=== PATIENT | male | born 1985 | race Caucasian/White ===

== ENCOUNTER 2017-06-23 18:10 | Emergency (ER) | END 2017-06-23 19:42 | disposition left against medical advice (07) | LOC: UCCORT 18:10 | DX: S89.91XA Unspecified injury of right lower leg, initial encounter (principal); X58.XXXA Exposure to other specified factors, initial encounter; Y93.9 Activity, unspecified; Y92.9 Unspecified place or not applicable; Y99.9 Unspecified external cause status; Z53.21 Procedure and treatment not carried out due to patient leaving prior to being seen by health care provider ==

== ENCOUNTER 2017-06-24 07:17 | Emergency (ER) | payer OTHER ==
[2017-06-24 07:28] VITALS: BP 137/85
--- NOTE | 2017-06-24 07:49 | UC ---
Knee Pain HPI - HPI Summary HPI Summary: 32 year old male with knee pain. c/o hearing a "pop" in R knee Wednesday while going down stairs. States body turned, but leg was left behind. Has had previous dislocaion of the left knee with avulsion fractures and knee surgery. Has not seen ortho since age 18. PCP Hugo. [ End ] - History of Current Complaint Chief Complaint: UCLowerExtremity Stated Complaint: RIGHT KNEE INJURY Time Seen by Provider: 06/24/17 07:46 Hx Obtained From: Patient Onset/Duration: Sudden Onset Severity Initially: Moderate Severity Currently: Moderate Character: Dull, Throbbing, Stiffness Aggravating Factor(s): Weight Bearing Alleviating Factor(s): Rest Associated Signs And Symptoms: Positive: Swelling Able to Bear Weight: Yes - Allergies/Home Medications Allergies/Adverse Reactions: Allergies Allergy/AdvReac Type Severity Reaction Status Date / Time No Known Allergies Allergy Verified 06/24/17 07:23 Home Medications: Home Medications Ibuprofen [Advil] 600 mg PO Q6H PRN 06/24/17 [History Confirmed 06/24/17] PMH/Surg Hx/FS Hx/Imm Hx Previously Healthy: Yes - Surgical History Surgical History: Yes Surgery Procedure, Year, and Place: L knee - Social History Occupation: Employed Full-time Lives: With Family Alcohol Use: Daily Alcohol Amount: couple beers nightly Substance Use Type: None Smoking Status (MU): Never Smoked Tobacco Review of Systems Constitutional: Negative Skin: Negative Eyes: Negative ENT: Negative Respiratory: Negative Cardiovascular: Negative Gastrointestinal: Negative Genitourinary: Negative Motor: Negative Neurovascular: Negative Musculoskeletal: Arthralgia, Decreased ROM Neurological: Negative Psychological: Negative Is Patient Immunocompromised?: No All Other Systems Reviewed And Are Negative: Yes Physical Exam Triage Information Reviewed: Yes Appearance: Well-Appearing, No Pain Distress, Well-Nourished Vital Signs: Initial Vital Signs Temp 98.6 F 06/24/17 07:24 Pulse 75 06/24/17 07:24 Resp 16 06/24/17 07:24 BP 137/85 06/24/17 07:24 Vital Signs Reviewed: Yes Eye Exam: Normal Neck: Positive: 1 Respiratory Exam: Normal Cardiovascular Exam: Normal Musculoskeletal: Positive: Strength Intact, No Edema, ROM Limited @ - with flexion some reduction . neg homans. no ballotment but mild effusion anterior knee. medial joint line and anterior knee mild pain to palpation, Other: - neg lachmmans. no homans. no ecchymosis. no disclocation. on obvious instability. antalgic gait. strength 5/5 and sensation intact Neurological Exam: Normal Psychological Exam: Normal Skin Exam: Normal Diagnostics - Laboratory Diagnostic Studies Completed/Ordered: X-RAY RESULTS : IMPRESSION: WELL- CORTICATED BONE FRAGMENT SUGGESTIVE OF REMOTE AVULSION INJURY VERSUS UNUNITED OSSICLE. OF THE MEDIAL PATELLA. NO ACUTE OSSEOUS INJURY. IF SYMPTOMS PERSIST, RECOMMEND REPEAT. IMAGING Knee Pain Course/Dx - Course Course Of Treatment: Discussed results with patient and to go to Ortho for F/U. No acute concerns. No stabbing pain . Pain 4 or 5 out of 10. 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 will go to ortho no matter what due to his history . - Differential Dx/Diagnosis Differential Diagnosis/HQI/PQRI: Contusion, Dislocation, Fracture (Closed), Internal Derangement Of Knee, Fanny-Schlatter Disease, Patellofemoral Syndrome , Sprain, Strain Provider Diagnoses: Right knee pain. Discharge - Discharge Plan Condition: Good Disposition: HOME Patient Education Materials: Knee Pain (ED) Referrals: Luis Eastman MD [Medical Doctor] - 4 Days (Ortho referral ) Additional Instructions: X-RAY RESULTS : IMPRESSION: WELL-CORTICATED BONE FRAGMENT SUGGESTIVE OF REMOTE AVULSION INJURY VERSUS UNUNITED OSSICLE OF THE MEDIAL PATELLA. NO ACUTE OSSEOUS INJURY. IF SYMPTOMS PERSIST, RECOMMEND REPEAT IMAGING
--- NOTE | 2017-06-24 08:26 | RAD ---
HISTORY: Right knee pain COMPARISONS: None VIEWS: 4, Frontal, lateral, axial, and oblique views of the right knee FINDINGS: BONE DENSITY: Normal. BONES: There is no acute displaced fracture. There is a well-corticated bone fragment along the medial aspect of the patella best seen on the axial views. JOINTS: There is no arthropathy. ALIGNMENT: There is no dislocation. SOFT TISSUES: Unremarkable. OTHER FINDINGS: None. IMPRESSION: WELL-CORTICATED BONE FRAGMENT SUGGESTIVE OF REMOTE AVULSION INJURY VERSUS UNUNITED OSSICLE OF THE MEDIAL PATELLA. NO ACUTE OSSEOUS INJURY. IF SYMPTOMS PERSIST, RECOMMEND REPEAT IMAGING
== END 2017-06-24 08:35 | disposition home or self-care (01) ==
LOC: UCCORT 07:17
DX: M25.561 Pain in right knee (principal)
CPT/HCPCS: 99211; G0463

== ENCOUNTER 2018-10-22 08:20 | Emergency (ER) | payer BC, OTHER ==
--- OUTSIDE RECORDS SUMMARY | 2018-10-22 08:29 | XMS REPORT | Continuity of Care Document ---
:1985 External Reference #:[id number] Author Name Kathrin Ramirez Care Team Providers Name Role Phone Chandler Angel MD Care Team Information Sports Statistician Unavailable Payers Date Identification Numbers Payment Provider Subscriber Effective: 2017 Policy Number: [id number] [employer] Elysia Casillas PayID: [id number] [address] [address] [place] [address] Advance Directives Description No Information Available Problems Description No Information Family History Date Family Member(s) Observation Comments General Breast Cancer maternal grandmother General Hypertension General Alzheimer's Disease Father Hypertension Mother Alive And Well First Brother Asthma Social History Type Date Description Comments Sex Unknown Marital Status Lives With Pets 1 cat Pets 2 dogs Occupation Currently Working time study analyst Occupation Business Travel Consultant ETOH Use Occasionally consumes alcohol Tobacco Use Start: Unknown End: Patient is a former smoker end date 2009 Unknown Recreational Drug Use Formerly used Marijuana sporadically Smoking Status Reviewed: 10/14/18 Patient is a former smoker end date 2009 Allergies, Adverse Reactions, Alerts Date Description Reaction Status Severity Comments 08/12/2018 Environmental Active Mild Medications Medication Date Status Form Strength Qnty SIG Indications Ordering Provider One Daily For Active Tablets Men 50+ Chandler Men 50+ 019 Mariajose valladares MD Vitamin D3 Active Tablets [id number] 12tabs 1 weekly Chandler Ultra Potency 018 (please Billy d3) MD jacquelyn Citalopram Active Tablets 20mg 90tabs 1 by F33.1 Chandler Hydrobromide 018 mouth Billy every MD jacquelyn day Oxycodone-Aceta /0 Hx Tablets 5-325mg Unknown minophen 000 - 018 Aspir-Low [address] 81mg Unknown 000 - 018 Immunizations CPT Code Status Date Vaccine Lot # 05334 Given 11/16/2011 Human Papillomavirus Vaccine Types; Nonavalent 3 [place] [address] Given 05/29/2011 Tdap - Tetanus/Diptheria/Acellular Pertussis 27064 Given 06/02/2005 Meningitis MCV4 MenACWY Meningococcal Conjugate Vaccine 14642 Given 04/08/2001 Hep B Pediatric/Adolescent 36590 Given 03/11/2000 Hep B Pediatric/Adolescent 93079 Given 02/05/2000 Hep B Pediatric/Adolescent 48994 Given 03/12/1993 IPV/Poliomyelitis Immunization 83898 Given 03/12/1993 Measles Mumps And Rubella MMR 60653 Given 03/21/1992 DTP Vaccine 38993 Given 04/07/1991 IPV/Poliomyelitis Immunization 07097 Given 04/07/1991 DTP Vaccine 58052 Given 04/07/1991 Hib PRP-T Conjugate 4 Dose Schedule 35267 Given 06/08/1989 Measles Mumps And Rubella MMR 16789 Given 04/16/1988 IPV/Poliomyelitis Immunization 45367 Given 04/16/1988 DTP Vaccine 98433 Given 1987 IPV/Poliomyelitis Immunization 22569 Given 1987 DTP Vaccine Vital Signs Date Vital Result Comment 10/14/2018 9:19am Height 65.75 inches 5'5.75" Weight 154.00 lb Heart Rate 56 /min BP Systolic 126 mmHg BP Diastolic 76 mmHg O2 % BldC Oximetry 99 % BMI (Body Mass Index) 25.0 kg/m2 09/08/2018 8:04am Weight 152.00 lb BP Systolic 130 mmHg BP Diastolic 62 mmHg 05/30/2018 4:21pm Weight 150.00 lb BP Systolic 112 mmHg BP Diastolic 74 mmHg 02/16/2018 4:27pm Weight 150.00 lb BP Systolic 130 mmHg BP Diastolic 72 mmHg 11/10/2017 11:57am Weight 146.00 lb BP Systolic 116 mmHg BP Diastolic 70 mmHg 10/13/2017 1:38pm Height 65 inches Weight 147.00 lb Heart Rate 84 /min BP Systolic 112 mmHg BP Diastolic 76 mmHg Respiratory Rate 16 /min BMI (Body Mass Index) 24.5 kg/m2 11/27/2016 8:17am Height 65.75 inches Weight 149.00 lb Heart Rate 76 /min BP Systolic 122 mmHg BP Diastolic 70 mmHg Respiratory Rate 16 /min Body Temperature 98.2 F BMI (Body Mass Index) 24.2 kg/m2 11/22/2015 11:01am Height 65.75 inches Weight 151.50 lb Heart Rate 68 /min BP Systolic 120 mmHg BP Diastolic 92 mmHg Respiratory Rate 16 /min Body Temperature 98.4 F BMI (Body Mass Index) 24.6 kg/m2 10/09/2014 3:21pm Height 65.30 inches Weight 158.00 lb Heart Rate 87 /min BP Systolic 130 mmHg BP Diastolic 90 mmHg Body Temperature 98.7 F BMI (Body Mass Index) 26.0 kg/m2 10/05/2014 10:59am Height 65.5 inches Weight 157.00 lb Heart Rate 72 /min BP Systolic 118 mmHg BP Diastolic 70 mmHg Body Temperature 98.3 F BMI (Body Mass Index) 25.7 kg/m2 Results Test Date Facility Test Result H/L Range Note Laboratory test 10/15/2017 N[facility] Import Thyroid Stim 0.92 uIU/mL 0.3- 4.2 1 finding Hormone Vitamin D,25-Hydroxy 13.2 ng/mL Low 30-100 2 Basic Metabolic Panel 10/15/2017 N2N/[facility] Import Anion Gap 8 mEq/L 8-16 BUN 12 mg/dL 7-18 BUN/Creat 13.3 ratio Calcium 9.4 mg/dL 8.5-10.1 Carbon Dioxide 23 mmol/L 21-32 Chloride 110 mmol/L High 98-107 Creatinine 0.9 mg/dL 0.6-1.3 Glom Filtration Rate, Estimate >60 mL/min Glucose 104 mg/dL 74-106 If >60 mL/min 3 Potassium 4.2 mmol/L 3.5-5.1 Sodium 141 mmol/L 136-145 CBC 10/15/2017 N2N/[facility]D Import Hematocrit 44.0 % 38-48 Hemoglobin 15.5 gm/dL 12.8-17 Mean Cell Volume 85.4 fl 80-96 Mean Corpuscular HGB 30.1 pg 27-33 Mean Corpuscular HGB Conc 35.2 g/dL 31.7-36 Mean Platelet Volume 11.8 fL High 6.6-10.6 Platelet Count 264 K/uL 155-360 Red Blood Count 5.15 M/uL 4.2-5.8 Red Cell Distri Width %CV 13.6 % 11.6-15.8 White Blood Count 9.9 K/uL 3.4-10.5 LDL Cholesterol Profile 10/15/2017 N2N/[facility]D Import Cholesterol 160 mg/dL 4 HDL Cholesterol 34 mg/dL Low 5 LDL-Cholesterol 112 mg/dL 6 Triglycerides 71 mg/dL 7 Vitamin B12 And 10/15/2017 N2N/[facility] Import Folic Acid 18.8 ng/mL High 3.1- 17.5 Folate Vitamin B12 275 pg/mL 193-986 Laboratory test 11/15/2014 N2N/CCD Import Varicella-Zoster 658 Immune> 165ind 8 finding Virus IgG Ab CBC 11/15/2014 N2N/CCD Import Hematocrit 43.8 % 38-4 8 Hemoglobin 15.2 gm/dL 12.8-17 Mean Cell Volume 87.8 fl 80-96 Mean Corpuscular HGB 30.5 pg 27-33 Mean Corpuscular HGB Conc 34.7 g/dL 31.7-36 Mean Platelet Volume 11.2 fL High 6.6-10.6 Platelet Count 260 K/uL 150-400 Red Blood Count 4.99 M/uL 4.2-5.8 Red Cell Distri Width %CV 13.6 % 11.6-15.8 White Blood Count 10.6 K/uL High 3.4-10.5 LDL Cholesterol Profile 11/15/2014 N2N/CCD Import Cholesterol 134 mg/dL 9 HDL Cholesterol 31 mg/dL 10 LDL-Cholesterol 79 mg/dL 11 Triglycerides 121 mg/dL 12 1 Z00.00 F32.9 2 Vitamin D deficiency has been defined by the [employer] of [employer] and an Endocrine Society practice guideline as a level of serum 25-OH vitamin D less than 20 ng/mL (1,2). The Endocrine Society went on to further define vitamin D insufficiency as a level between 21 and 29 ng/mL (2). 1. IOM ([employer] of [employer]). 2010. Dietary reference intakes for calcium and D. [place]: The National Academies Press. 2. Madhu MF, Mirna NC, Hari SHELTON, et al. Evaluation, treatment, and prevention of vitamin D deficiency: an Endocrine Society clinical practice guideline. JCEM. 2010; 96(7):1911-30. Performed at: RN - [facility] [address] [id number] Business Travel Consultant: Serenity Celaya MD, Phone: [phone] Note: Persistent reduction for 3 months or more in an eGFR <60 mL/min/1.73 m2 defines CKD. Patients with eGFR values >/=60 mL/min/1.73 m2 may also have CKD if evidence of persistent proteinuria is present. The original MDRD equation for estimated GFR is not valid for patients less than 18 years of age. Additional information may be found at www.kdoqi.org. 4 Reference Guidelines*: Desirable: ........... < 200 mg/dL Borderline High: ..... 200-239 mg/dL High: ................ >=240 mg/dL * The National Cholesterol Education Program (NCEP) 5 Reference Guidelines*: Low HDL: ..... < 40 mg/dL Normal: ..... 40-60 mg/dL Desirable: ... > 60 mg/dL *The National Cholesterol Education Program(NCEP) 6 Reference Guidelines*: Optimal:........... <100 mg/dL Near Optimal....... 100-129 mg/dL Borderline High.... 130-159 mg/dL High............... 160-189 mg/dL Very High.......... >=190 mg/dL * Source: National Cholesterol Education Program (NCEP) 7 Reference Guidelines*: Normal: ............. < 150 mg/dL Borderline High: .... 150-199 mg/dL High: ............... 200-499 mg/dL Very High: .......... > 500 mg/dL * Source: National Cholesterol Education Program (NCEP) 8 Negative <135 Equivocal 135 - 165 Positive >165 A positive result generally indicates exposure to the pathogen or administration of specific immunoglobulins, but it is not indication of active infection or stage of disease. Performed at: RN - [facility] [address] [id number] Business Travel Consultant: Serenity Celaya MD, Phone: [phone] Reference Guidelines*: Desirable: ........... < 200 mg/dL Borderline High: ..... 200-239 mg/dL High: ................ >=240 mg/dL * The National Cholesterol Education Program (NCEP) 10 Reference Guidelines*: Low HDL: ..... < 40 mg/dL Normal: ..... 40-60 mg/dL Desirable: ... > 60 mg/dL *The National Cholesterol Education Program(NCEP) 11 Reference Guidelines*: Optimal:........... <100 mg/dL Near Optimal....... 100-129 mg/dL Borderline High.... 130-159 mg/dL High............... 160-189 mg/dL Very High.......... >=190 mg/dL * Source: National Cholesterol Education Program (NCEP) 12 Reference Guidelines*: Normal: ............. < 150 mg/dL Borderline High: .... 150-199 mg/dL High: ............... 200-499 mg/dL Very High: .......... > 500 mg/dL * Source: National Cholesterol Education Program (NCEP) Procedures Date Code Description Status 11/22/2015 92727 Pure Tone Hearing Test, Air Completed 10/09/2014 33598 Visual funct screen test, automated Completed 10/09/2014 88003 Pure Tone Hearing Test, Air Completed Encounters Type Date Location Provider Dx Diagnosis Office Visit 09/08/2018 [facility] Chandler F33.1 Major depressive 8:00a MD Stanley disorder, recurrent, moderate Plan of Treatment Future Appointment(s):01/16/2019 4:30 pm - Chandler Angel MD at [facility]10/14/2018 - Chandler Angel MDZ00.01 Encounter for general adult medical examination with abnormaNew Labs:Basic Metabolic Panel, Ordered: 10/14/18CBC Auto Diff, Ordered: 10/14/18Lipid Profile (Trig/Chol/HDL), Ordered: 10/14/18F33.1 Major depressive disorder, recurrent, moderateNew Labs:TSH ( Thyroid Stim Horm), Ordered: 10/14/18Follow up:3 [id number] Unilateral inguinal hernia, without obstruction or gangrene,Referral:Lazaro Nicole MD, Surgery,UxchvisX58.9 Vitamin D deficiency, unspecifiedNew Labs:Vitamin D Total 25(Oh), Ordered: 10/14/18AllNew Medication:One Daily For Men 50+ Advanced Men 50+ -
[2018-10-22 08:30] VITALS: BP 141/94
--- NOTE | 2018-10-22 08:34 | UC ---
Throat Pain/Nasal Neville HPI - HPI Summary HPI Summary: 33-year-old male presents with 4 day history of nasal congestion, sore throat, and occasional nonproductive cough. States yesterday developed right ear pain. Denies fever, chills, headache, ear drainage, tinnitus, hearing loss, dizziness, vertigo, dysphagia, chest pain, shortness of breath, abdominal pain, nausea, vomiting, or diarrhea. - History of Current Complaint Chief Complaint: UCEar Stated Complaint: EAR PAIN Time Seen by Provider: 10/22/18 08:32 Hx Obtained From: Patient Pain Intensity: 8 - Allergies/Home Medications Allergies/Adverse Reactions: Allergies Allergy/AdvReac Type Severity Reaction Status Date / Time No Known Allergies Allergy Verified 10/22/18 08:28 Home Medications: Home Medications Cholecalciferol TAB* [Vitamin D TAB*] 1,000 unit PO DAILY 10/22/18 [History Confirmed 10/22/18] Citalopram TAB* [CeleXA TAB*] 10 mg PO DAILY 10/22/18 [History Confirmed ] PMH/Surg Hx/FS Hx/Imm Hx Previously Healthy: Yes - Denies significant PMH - Surgical History Surgical History: Yes Surgery Procedure, Year, and Place: L knee. right knee - Family History Known Family History: Positive: Non-Contributory - Social History Occupation: Employed Full-time Lives: With Family Alcohol Use: Occasionally Alcohol Amount: couple beers nightly Substance Use Type: None Smoking Status (MU): Never Smoked Tobacco Review of Systems All Other Systems Reviewed And Are Negative: Yes Constitutional: Negative: Fever, Chills Skin: Negative: Rash Eyes: Negative: Drainage, Eye Redness ENT: Positive: Sore Throat, Ear Ache, Nasal Discharge, Sinus Congestion. Negative: Sinus Pain/Tenderness Respiratory: Positive: Cough. Negative: Shortness Of Breath Cardiovascular: Negative: Palpitations, Chest Pain Gastrointestinal: Negative: Abdominal Pain, Vomiting, Diarrhea, Nausea Genitourinary: Positive: Negative Musculoskeletal: Positive: Negative Neurological: Positive: Negative Is Patient Immunocompromised?: No Physical Exam - Summary Physical Exam Summary: GENERAL APPEARANCE: Well developed, well nourished, alert and cooperative, and appears to be in no acute distress. EYES: Conjunctiva clear. No drainage. Vision is grossly intact. EARS: External auditory canals clear. Left TM opaque with good cone of light. Right TM erythematous with small effusion. Hearing grossly intact. NOSE: Mild nasal congestion. No nasal discharge. THROAT: Mild pharyngeal erythema. No tonsilar inflammation, swelling, exudate, or lesions. Uvula midline. Oral cavity normal. Teeth and gingiva in good general condition. NECK: Neck supple, non-tender without lymphadenopathy. CARDIAC: Normal S1 and S2. No S3, S4 or murmurs. Rhythm is regular. There is no peripheral edema, cyanosis or pallor. Extremities are warm and well perfused. Capillary refill is less than 2 seconds. Peripheral pulses intact. LUNGS: Clear to auscultation without rales, rhonchi, wheezing or diminished breath sounds. Dry, non-productive cough. ABDOMEN: Positive bowel sounds. Soft, nondistended, nontender. No guarding or rebound. No masses or hepatosplenomegally. MUSKULOSKELETAL: ROM intact to all extremities. No joint erythema or tenderness. Normal muscular development. Normal gait. SKIN: Skin normal color, texture and turgor with no lesions or eruptions. Triage Information Reviewed: Yes Vital Signs: Initial Vital Signs Temp 97.8 F 10/22/18 08:28 Pulse 70 10/22/18 08:28 Resp 16 10/22/18 08:28 BP 141/94 10/22/18 08:28 Pulse Ox 100 10/22/18 08:28 Vital Signs Reviewed: Yes Throat Pain/Nasal Course/Dx - Course Course Of Treatment: 33-year-old male presents with 4 day history of nasal congestion, sore throat, and occasional nonproductive cough. States yesterday developed right ear pain. Denies fever, chills, headache, ear drainage, tinnitus, hearing loss, dizziness, vertigo, dysphagia, chest pain, shortness of breath, abdominal pain, nausea, vomiting, or diarrhea. Afebrile. Elevated blood pressure otherwise vital signs stable. Exam reveals an adult male in no acute distress with mild nasal congestion, right ear erythema with small effusion, mild pharyngeal erythema without tonsillar swelling or exudate, no cervical lymphadenopathy, clear bilateral breath sounds, dry nonproductive cough, and otherwise unremarkable exam. Will treat patient for a upper respiratory infection with secondary right otitis media with amoxicillin 500 mg twice a day 10 days and symptomatic treatment. He is to return here or follow up with his primary care provider in 7 days if symptoms did not improve. Anticipatory guidance and warning symptoms are reviewed with the patient. Verbalizes understanding and agrees with plan of care. - Differential Dx/Diagnosis Differential Diagnosis/HQI/PQRI: Influenza, Otitis Media, Pharyngitis, Sinusitis , Tonsillitis, URI Provider Diagnosis: URI (upper respiratory infection), Right otitis media, Elevated blood pressure reading Discharge - Sign-Out/Discharge Documenting (check all that apply): Patient Departure All imaging exams completed and their final reports reviewed: No Studies - Discharge Plan Condition: Stable Disposition: HOME Prescriptions: Amoxicillin PO (*) [Amoxicillin 500 MG CAP*] 500 mg PO Q12H #20 cap Patient Education Materials: Ear Infection (ED), Upper Respiratory Infection ( ED) Referrals: Chandler Angel MD [Primary Care Provider] - 7 Days Additional Instructions: Your history and exam are consistent with an upper respiratory infection with a secondary right ear infection. We will start you on an antibiotic for the ear infection. Take amoxicillin 500 mg twice a day for 10 days. Be sure to complete the entire course even in you are feeling better. Drink plenty of fluids to avoid dehydration especially if you are running any fever. Use an over the counter decongestant such as Sudafed according to directions as needed for congestion. Take over the counter acetaminophen (Tylenol) or ibuprofen (Advil, Motrin) according to directions as needed for pain or fever. Use salt water gargles several times a day if you have a sore throat. You may also use Chloraseptic spray or Cepacol lonzenges according to directions which contain a numbing medication and can provide some temporary relief from your sore throat. Return here or follow up with your primary care provider in 7 days if symptoms persist. Your blood pressure was slightly elevated in the clinic today. It is recommended that you have this rechecked by your primary care provider within 4 weeks. Seek immediate medical attention in the emergency room if you have fever greater than 100.5 F despite taking acetaminophen or ibuprofen, have chest pain , difficulty breathing, are unable to swallow, or have any worsening of symptoms. - Billing Disposition and Condition Condition: STABLE Disposition: Home - Attestation Statements Provider Attestation: Per institutional requirements, I have reviewed the chart, however, I was not consulted specifically or made aware of this patient by the midlevel provider. I did not personally evaluate, interact with , or disposition this patient.
== END 2018-10-22 08:49 | disposition home or self-care (01) ==
LOC: UCCORT 08:20
DX: J06.9 Acute upper respiratory infection, unspecified (principal); H65.91 Unspecified nonsuppurative otitis media, right ear; R03.0 Elevated blood-pressure reading, without diagnosis of hypertension
CPT/HCPCS: 99212; G0463